=== PATIENT | female | born 1990 | race Caucasian/White ===

== ENCOUNTER 2017-08-15 22:00 | Emergency (ER) | payer BC, MEDICAID, OTHER ==
[~2017-08-15] VITALS: Ht 156.2 cm; Wt 73.6 kg
[~2017-08-15 22:00] MED LIST: ACET-784 PO
[2017-08-15 22:17] LABS: APPEARANCE,URINE CLEAR (CLEAR); GLUCOSE, URINE (UA) NEGATIVE (NEGATIVE); KETONES,URINE TRACE mg/dL (NEGATIVE); LEUKOCYTE ESTERASE ,URINE SMALL (NEGATIVE); OCCULT BLOOD,URINE MODERATE (NEGATIVE); PROTEIN,URINE TRACE (NEGATIVE)
[2017-08-15 22:18] LABS: ADD UA MICROSCOPIC YES
[2017-08-15 22:24] LABS: SQUAMOUS EPITHELIAL CELL,UR Many /LPF (None Seen)
[2017-08-15] MEDS ORDERED: IBUPROFEN 800 MG TABLET PO ONE (23:30)
[2017-08-16 01:27] VITALS: BP 115/66
== END 2017-08-16 01:29 | disposition home or self-care (01) ==
LOC: EMS 22:05
DX: J02.8 Acute pharyngitis due to other specified organisms (principal); B97.89 Other viral agents as the cause of diseases classified elsewhere
CPT/HCPCS: 87086; 87430; 99284

== ENCOUNTER 2019-11-15 17:10 | Emergency (ER) | payer OTHER ==
[~2019-11-15] VITALS: Ht 157.5 cm; Wt 81.8 kg
[2019-11-15] MEDS ORDERED: IBUPROFEN 400 MG TABLET PO ONE (17:45)
[2019-11-15 19:05] VITALS: BP 117/74
== END 2019-11-15 19:16 | disposition home or self-care (01) ==
LOC: EMS 17:12
DX: M79.672 Pain in left foot (principal)

== ENCOUNTER 2019-12-04 18:01 | Emergency (ER) | payer OTHER ==
[~2019-12-04] VITALS: Ht 160 cm; Wt 86.4 kg
[2019-12-04 19:01] LABS: INFLUENZA TYPE A NEGATIVE FOR TYPE A (NEGATIVE); INFLUENZA TYPE B POSITIVE FOR TYPE B (NEGATIVE); RAPID GROUP A STREP NEGATIVE (NEGATIVE)
[2019-12-04 20:17] VITALS: BP 110/79
== END 2019-12-04 20:33 | disposition home or self-care (01) ==
LOC: EMS 18:03
DX: J10.1 Influenza due to other identified influenza virus with other respiratory manifestations (principal)
CPT/HCPCS: 87430; 87804